=== PATIENT | male | born 2000 | race Caucasian/White ===

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

== ENCOUNTER 2021-03-31 10:55 | Inpatient (IN) | payer BC ==
[~2021-03-31] VITALS: Ht 185.4 cm; Wt 49.4 kg
--- NOTE | ~2021-03-31 | HEMODYNAMI ---
PATIENT:PARTH KAPLAN MEDICAL RECORD: [id number] : 01 LOCATION:D.MS [facility]19 ADMISSION DATE: 03/31/21 Generatedon:115:52 Patient name: PARTH KAPLAN Patient #: [id number] SSN: : 2000 Date of study: 04/02/2021 Page: Of Hemodynamic Procedure Report Patient Data Patient Demographics Procedure consent was obtained First Name: PARTH Gender: Male Last Name: EUSEBIO : 2000 Middle Initial: SHANEL Age: 21 year(s) Patient #: [id number] Race: Unknown Additional ID: [id number] Contact details Address: [address] [place] [address] State: [place] City: [facility] Zip code: [address] Past Medical History Allergies: No known allergies Admission Admission Data Admission Date: 03/31/2021 Admission Time: 12:08 Room #: D[facility]9 Height (in.): 71 BSA: 1.63 (m2) Height (cm.): 180.34 BMI: 15.2 (kg/m2) Weight (lbs.): 109 Weight (kg.): 49.44 Procedure Procedure Types Cath Procedure Peripheral Cath Diagnostic Procedure PICC PICC Line Placement Procedure Description Procedure Date Procedure Date: 04/02/2021 Procedure Start Time: 15:41 Procedure Staff Name Function Yuri Malhotra MD Performing Physician Mikaela Jones RT Kettle Chipper Hernán Bond RT Scrub Sheila Wellington RN Nurse Eugenia Gil RN Nurse Procedure Data Cath Procedure Fluoroscopy Diagnostic fluoroscopy Total fluoroscopy Time: 0.5 time: 0.5 min min Diagnostic fluoroscopy Total fluoroscopy dose: 1 dose: 1 mGy mGy Hemodynamics Rest BSA: 1.63 (m2) O2 Consumption: Estimated: 221.68 (ml/min) O2 Consumption indexed : Estimated:136 (ml/min/m) Pre Cath Intra NCS Post Cath Procedure Log Time Note 14:59:15 Patient Height : 71 inches 14:59:18 Patient Weight : 109 lbs 14:59:47 Use device set PICC 15:16:34 PowerPICC 5Fr double lumen catheter opened to sterile field. 15:16:35 SHIELD Sorbaview ([id number]) opened to sterile field. 15:16:36 Sterile Angiographic Pack opened to sterile field. 15:16:38 Bag Decanter (2002) opened to sterile field. 15:16:43 - 15:16:45 Time tracking: Regular hours (M-F 7:00 - 5:00) 15:27:47 Plan of Care:Hemodynamics will remain stable., Cardiac rhythm will remain stable., Comfort level will be maintained., Respiratory function will remain adequate., Patient/ family verbilizes understanding of procedure., Procedure tolerated without complication., Recovers from procedure without complications.. 15:27:55 Patient received from Med/Surg to IR Alert and oriented. Tansferred to table in Supine position. 15:27:59 Signed procedure consent form obtained from patient. 15:28:02 - 15:28:04 Pre-procedure instructions explained to patient. 15:28:05 Pre-op teaching completed and patient verbalized understanding. 15:28:07 Family unavailable. 15:28:15 Patient allergic to No known allergies 15:28:33 Right Arm area was prepped with chlora-prep and draped in sterile fashion 15:41:01 Physician arrived 15:41:01 --------ALL STOP TIME OUT------ 15:41:02 Final Timeout: patient, procedure, and site verified with staff and physician. All members of the team are in agreement. 15:41:18 Fire Safety Assessment: A--An alcohol-based skin anteseptic being used preoperatively. 15:41:23 Procedure started. 15:41:24 Full Disclosure recording started 15:41:29 Local anesthetic to right arm with Lidocaine 1% by Yuri Malhotra MD.INITIAL ACCESS ONLY 15:47:34 PICC line was trimmed to 43cm and advanced to the superior vena cava.Position verified under fluoroscopy. 15:49:24 Procedure ended.(Physican Out) 15:49:28 Fluoroscopy time 00.50 minutes. 15:49:31 Fluoroscopy dose: 1 mGy 15:49:31 Flurop Dose total: 1 15:50:15 Procedure and supply charges have been captured, reviewed, submitted an d are correct. 15:51:32 Report given to Med/Surg. Device Usage Item Name Manufacture Quantity Catalog Hospital Part Current Minimal Lot# / Number Charge Number Stock Stock Serial# Code [facility] 1 [id number] 5 5Fr double lumen catheter SHIELD Centurion 1 [id number] 5 Sorbaview ([id number]) Sterile Cardinal 1 [id number] 5 Angiographic Health Pack Bag Decanter Microtek 1 [id number] 5 () [employer] Signature Audit [place] Stage Time Signature Unsigned Intra-Procedure 04/02/2021 Mikaela Jones 3:52:12 PM RT(R) [facility] [address] [place] [address]
[2021-03-31] MEDS ORDERED: XIFAXAN550 MG PO (11:00)
--- NOTE | 2021-03-31 11:20 | NUR ---
PATIENT ARRIVED VIA STRETCHER VIA EMS- iV LEFT FOREARM IN PLACE AND PATIENT WITH NS AT O
[2021-03-31 11:22] LABS: BASOPHILS 0.7 % (0-2); EOSINOPHILS 0.4 % (0-7); HEMATOCRIT 43.7 % (42.0-54.0); HEMOGLOBIN 15.4 g/dL (13.5-17.5); MCH 29.1 pg (26.0-34.0); MCHC 35.2 g/dL (31.0-37.0); MCV 82.8 fL (80.0-100.0); MEAN PLATELET VOLUME 8.1 fL (7.4-10.4); MONOCYTES 10.2 % (2-11); NEUTROPHILS 68.7 % (40-80); PLATELET COUNT 240 10x3/uL (130-400); RBC 5.28 10x6/uL (4.20-6.10); RDW 13.2 % (11.5-14.5); WBC 9.5 10x3/uL (4.8-10.8)
[2021-03-31 11:24] LABS: CALC OSMOLALITY 278 mosm/kg (275-300); CALCIUM 9.5 mg/dL (8.5-10.1); CARBON DIOXIDE 27.5 mmol/L (21.0-32.0); CHLORIDE - SERUM 96 mmol/L (98-107); CREATININE - SERUM 1.2 mg/dL (0.6-1.3); GLUCOSE 114 mg/dL (74-106); SODIUM 138 mmol/L (136-145); UREA NITROGEN 19 mg/dL (7-18); eGFR NON AFRICAN AMERICAN 82 mL/min (90-120)
[2021-03-31 11:33] LABS: ALKALINE PHOSPHATASE 55 U/L (30-120); ALT (SGPT) 55 U/L (10-68); AMYLASE - SERUM 54 U/L (25-115); BILIRUBIN - TOTAL 1.71 mg/dL (0.2-1.3); LIPASE 102 U/L (73-393); PROTEIN - SERUM 8.5 g/dL (6.4-8.2); TROPONIN-I < 0.017 ng/mL (0.000-0.060)
[2021-03-31 12:21] VITALS: BP 138/87
[2021-03-31 14:02] VITALS: BP 113/71
--- NOTE | 2021-03-31 14:03 | NUR ---
arouses easily. NS bolus completed. Mother remains at BS. Denies pain at present. No vomiting at this time. Mother and patient reminded he is NPO due to further testing needed to be done.
[2021-03-31 14:55] VITALS: BP 132/75
--- NOTE | 2021-03-31 16:08 | NUR ---
PT GOING FOR CT
--- NOTE | 2021-03-31 17:44 | NUR ---
Report called to [facility] nurse. DI notified of patient being transferred to room 3497
--- NOTE | 2021-03-31 18:16 | NUR ---
TO UNIT FROM CT VIA STRETCHER. MOMS AT BEDSIDE. SOME NAUSEA NOTED. STATES IT IS FROM THE ENSURE HE DRANK. DENIES FURTHER NEEDS AT THIS TIME. WILL CONTINUE TO MONITOR.
[2021-03-31 20:00] VITALS: BP 136/75
[2021-04-01 01:05] VITALS: BP 136/75
[2021-04-01 06:06] LABS: BASOPHILS 0.8 % (0-2); EOSINOPHILS 1.6 % (0-7); LYMPHOCYTES 47.4 % (15-50); MCH 29.8 pg (26.0-34.0); MCHC 35.5 g/dL (31.0-37.0); MCV 83.8 fL (80.0-100.0); MEAN PLATELET VOLUME 8.3 fL (7.4-10.4); MONOCYTES 9.9 % (2-11); NEUTROPHILS 40.3 % (40-80); PLATELET COUNT 205 10x3/uL (130-400); RDW 12.7 % (11.5-14.5); WBC 9.3 10x3/uL (4.8-10.8)
[2021-04-01 06:24] LABS: HEMATOCRIT 34.3 % (42.0-54.0); HEMOGLOBIN 12.2 g/dL (13.5-17.5); RBC 4.09 10x6/uL (4.20-6.10)
--- NOTE | 2021-04-01 07:30 | NUR ---
IN BED SLEEPING. BED LOW POSITION, CALL LIGHT IN REACH. SISTER AT BEDSIDE. WILL CONTINUE TO MONITOR.
[2021-04-01 07:56] LABS: ALKALINE PHOSPHATASE 44 U/L (30-120); BILIRUBIN - TOTAL 1.46 mg/dL (0.2-1.3); CALC OSMOLALITY 278 mosm/kg (275-300); CALCIUM 8.4 mg/dL (8.5-10.1); CARBON DIOXIDE 29.6 mmol/L (21.0-32.0); CHLORIDE - SERUM 103 mmol/L (98-107); GLUCOSE 95 mg/dL (74-106); POTASSIUM - SERUM 3.4 mmol/L (3.5-5.1); SODIUM 139 mmol/L (136-145); UREA NITROGEN 15 mg/dL (7-18); eGFR NON AFRICAN AMERICAN > 90 mL/min (90-120)
[2021-04-01 08:02] LABS: ALBUMIN 3.6 g/dL (3.4-5.0); ALT (SGPT) 39 U/L (10-68); PROTEIN - SERUM 6.3 g/dL (6.4-8.2)
[2021-04-01 08:50] VITALS: BP 111/63
[2021-04-01 12:56] VITALS: BP 141/86
--- NOTE | 2021-04-01 15:11 | NUR ---
IN BED RESTING. IV INFUSING PER MAR. FAMILY AT BEDSIDE. DENIES NEEDS AT THIS TIME. WILL CONTINUE TO MONITOR.
[2021-04-01 16:38] VITALS: BP 119/68
[2021-04-02 06:32] LABS: HEMATOCRIT 33.2 % (42.0-54.0); HEMOGLOBIN 11.7 g/dL (13.5-17.5); MCH 29.7 pg (26.0-34.0); MCHC 35.1 g/dL (31.0-37.0); MCV 84.7 fL (80.0-100.0); MEAN PLATELET VOLUME 8.7 fL (7.4-10.4); PLATELET COUNT 173 10x3/uL (130-400); RBC 3.92 10x6/uL (4.20-6.10); RDW 12.4 % (11.5-14.5)
[2021-04-02 06:51] LABS: ALBUMIN 3.5 g/dL (3.4-5.0); ALKALINE PHOSPHATASE 37 U/L (30-120); ALT (SGPT) 37 U/L (10-68); BILIRUBIN - TOTAL 1.24 mg/dL (0.2-1.3); CALC OSMOLALITY 273 mosm/kg (275-300); CALCIUM 8.2 mg/dL (8.5-10.1); CARBON DIOXIDE 25.4 mmol/L (21.0-32.0); CHLORIDE - SERUM 105 mmol/L (98-107); CREATININE - SERUM 0.9 mg/dL (0.6-1.3); GLUCOSE 86 mg/dL (74-106); MAGNESIUM - SERUM 1.9 mg/dL (1.8-2.4); PHOSPHOROUS 3.1 mg/dL (2.5-4.9); POTASSIUM - SERUM 3.7 mmol/L (3.5-5.1); PRE-ALBUMIN 18.9 mg/dL (18.0-35.7); SODIUM 138 mmol/L (136-145); UREA NITROGEN 11 mg/dL (7-18); eGFR NON AFRICAN AMERICAN > 90 mL/min (90-120)
--- NOTE | 2021-04-02 07:15 | NUR ---
REC'D IN BED AWAKE AND ALERT. RESP EVEN AND UNLABORED WITH NO DISTRESS NOTED CAN EXPRESS NEEDS AND WANTS. NO C/O NOTED OR VOICED AT THIS TIME. ASSESSMENT COMPLETED. C/L IN REACH AT BEDSIDE.
[2021-04-02 09:23] VITALS: BP 110/70
[2021-04-02 12:45] LABS: EOSINOPHILS 7 % (0-7); LYMPHOCYTES 54 % (15-50); MONOCYTES 2 % (2-11); NEUTROPHILS 33 % (40-80); PLATELET ESTIMATE NORMAL
--- NOTE | 2021-04-02 13:37 | NUR ---
I have reviewed this patient and I concur with the Shift Assessment completed by the Licensed Practical Nurse today this shift.
[2021-04-02 14:33] VITALS: Ht 185.4 cm; Wt 49.4 kg
[2021-04-02 16:46] VITALS: BP 127/78
--- NOTE | 2021-04-02 17:22 | NUR ---
CALLED AND SPOKE WITH TIA MATHIS ABOUT PT CONTINUING TO VOMIT AT THIS TIME. REC'D NEW ORDERS FOR PHENEGRAN 12.5 MG X 1 DOSE IM, DROP NG TUBE TO LIWS, AND LABS OF CEA AND CA19-9. ORDERS WERE CARRIED OUT. WILL CONTINUE TO OBSERVE FOR NEEDS. C/L IN REACH AT BEDSIDE.
--- NOTE | 2021-04-02 18:34 | NUR ---
NG TUBE DROPPED AT THIS TIME TO LEFT NARE WITH 16 F. PT TOLERATED WELL. NO C/O NOTED OR VOICED. C/L AND FAMILY AT BEDSIDE.
[2021-04-02 18:48] LABS: BILIRUBIN NEGATIVE (NEGATIVE); KETONE 3+ mg/dL (< 1+); NITRITE NEGATIVE (NEGATIVE); UROBILINOGEN NORMAL mg/dL (< 2)
[2021-04-02 18:50] LABS: UDS - AMPHET NEGATIVE QUAL (NEGATIVE); UDS - BARB NEGATIVE QUAL (NEGATIVE); UDS - BENZO NEGATIVE QUAL (NEGATIVE); UDS - COCAINE NEGATIVE QUAL (NEGATIVE); UDS - OPIATE NEGATIVE QUAL (NEGATIVE); UDS - PCP NEGATIVE QUAL (NEGATIVE); UDS - THC POSITIVE QUAL (NEGATIVE)
--- NOTE | 2021-04-02 19:30 | NUR ---
RECIEVED BEDSIDE REPORT. RESTING HIGH KIMBALL'S IN BED NG TUBE TO LEFT NARE PATENT AND CONNECTED TO LOW INTERMITTENT SUCTION. CLEAR DRAINAGE NOTED. PIV TO LEFT WRIST PATENT WITH DRESSING C/D/I, INFUSING. PICC LINE TO RIGHT UPPER ARM DOUBLE LUMEN DRESSING INTACT SWAB CAPS IN PLACE. NO NEEDS VOICED AT THIS TIME. CALL LIGHT IN REACH BED LOCKED IN LOW POSITION.
[2021-04-02 20:00] VITALS: BP 122/64
[2021-04-03 05:47] LABS: EOSINOPHILS 3.4 % (0-7); HEMATOCRIT 35.7 % (42.0-54.0); HEMOGLOBIN 12.2 g/dL (13.5-17.5); LYMPHOCYTES 37.3 % (15-50); MCH 28.9 pg (26.0-34.0); MCHC 34.2 g/dL (31.0-37.0); MCV 84.5 fL (80.0-100.0); MONOCYTES 9.3 % (2-11); RBC 4.22 10x6/uL (4.20-6.10); RDW 12.5 % (11.5-14.5); WBC 8.7 10x3/uL (4.8-10.8)
[2021-04-03 06:14] LABS: ALBUMIN 3.7 g/dL (3.4-5.0); ALKALINE PHOSPHATASE 46 U/L (30-120); ALT (SGPT) 33 U/L (10-68); CALC OSMOLALITY 271 mosm/kg (275-300); CALCIUM 8.5 mg/dL (8.5-10.1); CARBON DIOXIDE 25.6 mmol/L (21.0-32.0); CHLORIDE - SERUM 103 mmol/L (98-107); CREATININE - SERUM 0.8 mg/dL (0.6-1.3); GLUCOSE 89 mg/dL (74-106); POTASSIUM - SERUM 3.6 mmol/L (3.5-5.1); PROTEIN - SERUM 6.6 g/dL (6.4-8.2); SODIUM 137 mmol/L (136-145); UREA NITROGEN 11 mg/dL (7-18); eGFR NON AFRICAN AMERICAN > 90 mL/min (90-120)
[2021-04-03 06:23] LABS: PLATELET COUNT 211 10x3/uL (130-400)
--- NOTE | 2021-04-03 08:08 | NUR ---
PT. RESTING IN BED, AWAKE AND ALERT. MOTHER IN ROOM. DENIES ANY NEEDS OR PAIN. SAYS NAUSEA IS BETTER WITH ZOFRAN DRIP INFUSING. NGTUBE TO Yina HERZOG, PATENT AND SUCTIONING CLEAR DRAINAGE. DENIES PASSING GAS AT THIS TIME. BOWEL SOUNDS+ ALL FOUR QUADRANTS. CL WITHIN REACH, SRUPX2.
[2021-04-03 09:00] VITALS: BP 107/67
--- NOTE | 2021-04-03 09:50 | NUR ---
PT WALKING IN HALLWAY WITH MOTHER. NO DIFFICULTY. STEADY GAIT
[2021-04-03 13:00] VITALS: BP 121/87
--- NOTE | 2021-04-03 13:06 | NUR ---
I have reviewed this patient and I concur with the Shift Assessment completed by the Licensed Practical Nurse today this shift.
[2021-04-03 13:12] LABS: HEPATITIS C ANTIBODY <0.1 S/CO RAT (0.0-0.9)
[2021-04-03 16:00] VITALS: BP 124/89
[2021-04-03 20:00] VITALS: BP 112/65
[2021-04-04 05:58] LABS: BASOPHILS 0.4 % (0-2); EOSINOPHILS 0.9 % (0-7); HEMATOCRIT 33.1 % (42.0-54.0); HEMOGLOBIN 11.7 g/dL (13.5-17.5); LYMPHOCYTES 13.8 % (15-50); MCH 30.2 pg (26.0-34.0); MCHC 35.5 g/dL (31.0-37.0); MCV 85.1 fL (80.0-100.0); MEAN PLATELET VOLUME 9.1 fL (7.4-10.4); MONOCYTES 10.8 % (2-11); NEUTROPHILS 74.1 % (40-80); PLATELET COUNT 196 10x3/uL (130-400); RBC 3.89 10x6/uL (4.20-6.10); RDW 12.4 % (11.5-14.5)
[2021-04-04 06:18] LABS: ALBUMIN 3.3 g/dL (3.4-5.0); ALKALINE PHOSPHATASE 45 U/L (30-120); ALT (SGPT) 31 U/L (10-68); BILIRUBIN - TOTAL 1.09 mg/dL (0.2-1.3); CALCIUM 8.3 mg/dL (8.5-10.1); CARBON DIOXIDE 25.6 mmol/L (21.0-32.0); CHLORIDE - SERUM 100 mmol/L (98-107); CREATININE - SERUM 0.8 mg/dL (0.6-1.3); GLUCOSE 99 mg/dL (74-106); PROTEIN - SERUM 6.1 g/dL (6.4-8.2); SODIUM 131 mmol/L (136-145); eGFR NON AFRICAN AMERICAN > 90 mL/min (90-120)
[2021-04-04 06:19] LABS: CALC OSMOLALITY 260 mosm/kg (275-300); POTASSIUM - SERUM 5.1 mmol/L (3.5-5.1); UREA NITROGEN 7 mg/dL (7-18)
[2021-04-04 07:41] VITALS: BP 124/69
--- NOTE | 2021-04-04 14:12 | NUR ---
I have reviewed this patient and I concur with the Shift Assessment completed by the Licensed Practical Nurse today this shift.
[2021-04-04 15:12] LABS: CEA 1.6 ng/mL (0.0-4.7)
[2021-04-04 16:54] VITALS: BP 107/63
[2021-04-04 18:53] LABS: ERYTHROCYTE SEDIMENTATION RATE 4 mm/hr (0-15)
[2021-04-05] VITALS: BP 94/46
[2021-04-05 04:00] VITALS: BP 109/8
[2021-04-05 06:25] LABS: ALBUMIN 3.2 g/dL (3.4-5.0); ALKALINE PHOSPHATASE 37 U/L (30-120); ALT (SGPT) 26 U/L (10-68); BILIRUBIN - TOTAL 0.85 mg/dL (0.2-1.3); CALC OSMOLALITY 276 mosm/kg (275-300); CALCIUM 8.2 mg/dL (8.5-10.1); CHLORIDE - SERUM 104 mmol/L (98-107); CREATININE - SERUM 0.9 mg/dL (0.6-1.3); GLUCOSE 102 mg/dL (74-106); POTASSIUM - SERUM 3.7 mmol/L (3.5-5.1); PROTEIN - SERUM 6.1 g/dL (6.4-8.2); SODIUM 139 mmol/L (136-145); UREA NITROGEN 9 mg/dL (7-18); eGFR NON AFRICAN AMERICAN > 90 mL/min (90-120)
[2021-04-05 06:28] LABS: BASOPHILS 0.4 % (0-2); EOSINOPHILS 2.7 % (0-7); HEMATOCRIT 33.1 % (42.0-54.0); HEMOGLOBIN 11.4 g/dL (13.5-17.5); LYMPHOCYTES 24.2 % (15-50); MCH 29.5 pg (26.0-34.0); MCHC 34.4 g/dL (31.0-37.0); MCV 85.7 fL (80.0-100.0); MEAN PLATELET VOLUME 8.7 fL (7.4-10.4); MONOCYTES 12.6 % (2-11); NEUTROPHILS 60.1 % (40-80); PLATELET COUNT 166 10x3/uL (130-400); RBC 3.86 10x6/uL (4.20-6.10); RDW 12.3 % (11.5-14.5); WBC 7.6 10x3/uL (4.8-10.8)
--- NOTE | 2021-04-05 07:25 | NUR ---
PT IS RESTING IN BED WITH EYES CLOSED. RESPIRATIONS ARE EVEN AND UNLABORED. PT IS EASILY AROUSED WITH VERBAL STIMULATION AND IS AAO X 4 UPON AROUSAL. RIGHT UPPER ARM PICC NOTED AND INFUSING PER ORDER WITHOUT COMPROMISE. DRESSING IN PLACE AND CDI. SWAB CAPS IN APPROPRIATE PLACES FOR INFUSION LINES. INCENTIVE SPIROMETER WITHIN REACH AND ENCOURAGED. PT VERBALIZES UDNERSTANDING. PT WITH FAMILY MEMBER AT BEDSIDE AND STATES HX OF ABDOMINAL/BOWEL MALFORMATION AT WITH QUESTIONS PERTAINING TO CONNECTION TO CURRENT DX. WILL RELAY INFORMATION TO PT PHYSICIAN. PT DENIES PRESENCE OF N/V AT THIS TIME. PT STATES THAT HE HAS BEEN TOLERATING CL AND REPORTS LAST EPISODE OF EMESIS "4 DAYS AGO". PT REPORTS BM THIS AM DESCRIBED SMALL AND HARD. PT DENIES PRESENCE OF DYSPNEA/SOB AT THIS TIME. BED IS IN THE LOWEST POSITION. CALL LIGHT AND BEDSIDE TABLE ARE WITHIN REACH. SIDE RAILS X 2. PT AND PT FAMILY DENY FURTHER NEEDS. WILL CONT TO MONITOR.
[2021-04-05 09:11] VITALS: BP 115/64
[2021-04-05 11:32] VITALS: BP 125/63
--- NOTE | 2021-04-05 13:27 | NUR ---
Nutrition follow-up: Diet order: Full liquids; pt tolerating with no N/V for several days ProcalAmine PPN continues @ 50 ml/hr Labs reviewed Wt: 109# Recommendations: Increase ProcalAmine PPN to 100 ml/hr to increase kcal, protein intake RDN will order Ensure with meals Follow-up on pts progress toward nutrition goals in 3-5 days.
[2021-04-05 17:39] VITALS: BP 120/75
--- NOTE | 2021-04-05 19:30 | NUR ---
RECEIVED BEDSIDE REPORT. PT LAYING IN BED A&O X4. PICC LINE TO RIGHT UPPER ARM, PATENT AND INFUSING, NO REDNESS OR SWELLING. PT ABLE TO AMBULATE AD ELISE. EDUCATED PT ON CL AND NEEDS, VERBALIZED UNDERSTANDING. BED LOW, CL IN REACH.
[2021-04-06 05:13] LABS: BASOPHILS 0.6 % (0-2); EOSINOPHILS 3.4 % (0-7); HEMATOCRIT 29.2 % (42.0-54.0); HEMOGLOBIN 10.2 g/dL (13.5-17.5); LYMPHOCYTES 28.4 % (15-50); MCH 29.7 pg (26.0-34.0); MCHC 34.9 g/dL (31.0-37.0); MCV 85.1 fL (80.0-100.0); MEAN PLATELET VOLUME 8.8 fL (7.4-10.4); MONOCYTES 13.3 % (2-11); NEUTROPHILS 54.3 % (40-80); PLATELET COUNT 171 10x3/uL (130-400); RBC 3.43 10x6/uL (4.20-6.10); RDW 12.4 % (11.5-14.5); WBC 6.7 10x3/uL (4.8-10.8)
[2021-04-06 06:09] LABS: ALKALINE PHOSPHATASE 39 U/L (30-120); ALT (SGPT) 22 U/L (10-68); BILIRUBIN - TOTAL 0.44 mg/dL (0.2-1.3); CALC OSMOLALITY 276 mosm/kg (275-300); CARBON DIOXIDE 25.2 mmol/L (21.0-32.0); CHLORIDE - SERUM 107 mmol/L (98-107); CREATININE - SERUM 0.8 mg/dL (0.6-1.3); GLUCOSE 94 mg/dL (74-106); POTASSIUM - SERUM 4.1 mmol/L (3.5-5.1); PROTEIN - SERUM 5.9 g/dL (6.4-8.2); SODIUM 140 mmol/L (136-145); UREA NITROGEN 7 mg/dL (7-18); eGFR NON AFRICAN AMERICAN > 90 mL/min (90-120)
--- NOTE | 2021-04-06 07:43 | NUR ---
PT RESTING QUIETLY IN BED. RESP EVEN AND UNLABORED. PICC LINE INTACT TO RIGHT UPPER ARM WITH PROCALAMINE @ 50 ML/HR, ZOFRAN 4.7 ML/HR, AND NS @ 100ML/HR ALL INFUSING VIA PUMP. SITE WITHOUT REDNESS OR EDEMA. PT DENIES ANY N/V AT THIS TIME. DENIES FURTHER NEEDS AT THIS TIME. CL WITHIN REACH. ENCOURAGED TO CALL WITH NEEDS. CONTINUE POC
[2021-04-06 09:04] VITALS: BP 108/60
[2021-04-06 12:45] VITALS: BP 119/78
[2021-04-06 20:00] VITALS: BP 98/70
[2021-04-07 04:00] VITALS: BP 107/60
--- NOTE | 2021-04-07 07:47 | NUR ---
SITTING UP IN BED WITH EYES OPEN, ALERT AND ORIENTED. PICC LOCATED TO RIGHT ARM, PROCAL RUNNING @ 50, NS RUNNING @ 100. NO CURRENT S/S OF DISTRESS, DENIES NEEDS AT THIS TIME, WILL CONT TO MONITOR.
[2021-04-07 08:58] VITALS: BP 115/59
[2021-04-07 09:16] LABS: BASOPHILS 1.2 % (0-2); EOSINOPHILS 6.3 % (0-7); HEMATOCRIT 33.8 % (42.0-54.0); HEMOGLOBIN 11.7 g/dL (13.5-17.5); LYMPHOCYTES 33.3 % (15-50); MCH 29.4 pg (26.0-34.0); MCHC 34.7 g/dL (31.0-37.0); MCV 84.7 fL (80.0-100.0); MEAN PLATELET VOLUME 8.4 fL (7.4-10.4); MONOCYTES 12.9 % (2-11); NEUTROPHILS 46.3 % (40-80); RDW 12.5 % (11.5-14.5)
[2021-04-07 09:25] LABS: PLATELET COUNT 251 10x3/uL (130-400); WBC 4.7 10x3/uL (4.8-10.8)
[2021-04-07 09:28] LABS: ALBUMIN 3.5 g/dL (3.4-5.0); ALKALINE PHOSPHATASE 39 U/L (30-120); ALT (SGPT) 27 U/L (10-68); CALC OSMOLALITY 277 mosm/kg (275-300); CALCIUM 8.9 mg/dL (8.5-10.1); CHLORIDE - SERUM 105 mmol/L (98-107); CREATININE - SERUM 0.8 mg/dL (0.6-1.3); GLUCOSE 84 mg/dL (74-106); MAGNESIUM - SERUM 2.2 mg/dL (1.8-2.4); POTASSIUM - SERUM 4.7 mmol/L (3.5-5.1); PROTEIN - SERUM 6.7 g/dL (6.4-8.2); SODIUM 141 mmol/L (136-145); UREA NITROGEN 6 mg/dL (7-18); eGFR NON AFRICAN AMERICAN > 90 mL/min (90-120)
[2021-04-07 13:38] VITALS: BP 104/68; BP 118/79
[2021-04-07 17:47] VITALS: BP 120/70
[2021-04-07 20:00] VITALS: BP 125/75; BP 139/65
[2021-04-08 04:00] VITALS: BP 120/81
[2021-04-08 06:52] LABS: BASOPHILS 1.1 % (0-2); EOSINOPHILS 4.9 % (0-7); HEMATOCRIT 34.1 % (42.0-54.0); HEMOGLOBIN 11.7 g/dL (13.5-17.5); MCH 29.1 pg (26.0-34.0); MCHC 34.5 g/dL (31.0-37.0); MCV 84.5 fL (80.0-100.0); MEAN PLATELET VOLUME 8.1 fL (7.4-10.4); MONOCYTES 11.4 % (2-11); NEUTROPHILS 39.6 % (40-80); PLATELET COUNT 294 10x3/uL (130-400); RBC 4.03 10x6/uL (4.20-6.10); RDW 12.6 % (11.5-14.5); WBC 5.2 10x3/uL (4.8-10.8)
[2021-04-08 07:13] VITALS: BP 127/72
[2021-04-08 07:19] LABS: ALBUMIN 3.6 g/dL (3.4-5.0); ALKALINE PHOSPHATASE 46 U/L (30-120); ALT (SGPT) 29 U/L (10-68); BILIRUBIN - TOTAL 0.69 mg/dL (0.2-1.3); CALCIUM 8.9 mg/dL (8.5-10.1); CARBON DIOXIDE 27.8 mmol/L (21.0-32.0); CHLORIDE - SERUM 103 mmol/L (98-107); CREATININE - SERUM 0.8 mg/dL (0.6-1.3); GLUCOSE 95 mg/dL (74-106); POTASSIUM - SERUM 4.2 mmol/L (3.5-5.1); PROTEIN - SERUM 6.7 g/dL (6.4-8.2); SODIUM 139 mmol/L (136-145); eGFR NON AFRICAN AMERICAN > 90 mL/min (90-120)
[2021-04-08 07:20] LABS: CALC OSMOLALITY 276 mosm/kg (275-300); UREA NITROGEN 9 mg/dL (7-18)
[2021-04-08 12:29] VITALS: BP 106/68
[2021-04-08 12:36] LABS: MAGNESIUM - SERUM 2.3 mg/dL (1.8-2.4)
[2021-04-08 16:15] VITALS: BP 107/67
[2021-04-09 05:39] LABS: BASOPHILS 1.2 % (0-2); EOSINOPHILS 4.1 % (0-7); HEMATOCRIT 37.4 % (42.0-54.0); HEMOGLOBIN 12.8 g/dL (13.5-17.5); LYMPHOCYTES 40.6 % (15-50); MCH 28.8 pg (26.0-34.0); MCHC 34.1 g/dL (31.0-37.0); MCV 84.3 fL (80.0-100.0); NEUTROPHILS 42.1 % (40-80); PLATELET COUNT 340 10x3/uL (130-400); RBC 4.44 10x6/uL (4.20-6.10); RDW 12.3 % (11.5-14.5)
[2021-04-09 06:08] LABS: ALBUMIN 3.8 g/dL (3.4-5.0); ALKALINE PHOSPHATASE 51 U/L (30-120); ALT (SGPT) 37 U/L (10-68); BILIRUBIN - TOTAL 0.39 mg/dL (0.2-1.3); CALC OSMOLALITY 278 mosm/kg (275-300); CALCIUM 8.8 mg/dL (8.5-10.1); CARBON DIOXIDE 30.1 mmol/L (21.0-32.0); CHLORIDE - SERUM 103 mmol/L (98-107); CREATININE - SERUM 0.9 mg/dL (0.6-1.3); GLUCOSE 88 mg/dL (74-106); MAGNESIUM - SERUM 2.3 mg/dL (1.8-2.4); PHOSPHOROUS 5.4 mg/dL (2.5-4.9); POTASSIUM - SERUM 4.6 mmol/L (3.5-5.1); PROTEIN - SERUM 7.1 g/dL (6.4-8.2); SODIUM 140 mmol/L (136-145); UREA NITROGEN 16 mg/dL (7-18); eGFR NON AFRICAN AMERICAN > 90 mL/min (90-120)
[2021-04-09 06:37] LABS: WBC 7.2 10x3/uL (4.8-10.8)
--- NOTE | 2021-04-09 06:56 | NUR ---
SLEEPING ON LEFT SIDE. PATIENT IS WITHOUT DISTRES.CALL LIGHT IN REACH
[2021-04-09 10:27] VITALS: BP 125/59
--- NOTE | 2021-04-09 16:18 | MORECARE ---
CASE MANAGEMENT DISCHARGE SUMMARY PATIENT: PARTH KAPLAN UNIT: [id number] ADM DATE: 04/04/21 AGE: 21 : 01 SEX: M ROOM/BED: D.2219 AUTHOR: COURTNEY,DOC PHYSICIAN: REFERRING PHYSICIAN: MARLO LYONS MD DATE OF SERVICE: 04/09/21 Case Management Discharge Planning Summary COMMENTS ENTERED DATE: 04/09/21 16:13 CT COMMENT TYPE: Discharge Planning REVIEWER: Sera Loja CM met with patient to complete initial dc planning assessment. CM educated patient on the CM role and verbal consent given by patient to complete assessment. Patient lives at home with his parents where he is independent with his care. At discharge patient plans to return home and feels this is a safe discharge. CM discussed availability of home health, rehab services, and medical equipment. He is a patient of Dr Ortega and uses [facility]. His mom will be his route cdl driver home. There was discussion about keeping the PICC line in place for at least a week to make sure he does not need it. Lita and Dr Smith spoke about it on 04/08/21 per Lita. The nurse will get with MD/ BAGGAGE PORTER to see if he was to go home with it. IF he does nurse will teach flushing and care. He works a job so did not want home health. All of this was discussed with patient and mother. Patient denied known discharge needs at this time. CM will continue to follow and will assist as needed with dc plans/needs. DCP REVIEW SUMMARY ANTICIPATED D/C DATE: EXPECTED LOS : CASE STATUS: DCP Initiated INITIAL REVIEW: 03/31/2021 INITIAL REVIEWER: Sera Loja FINAL DISCHARGE DISPOSITION: : FINAL REVIEWER: FINAL REVIEW DATE: DCP [employer] Questions & Answers QUESTION: ANSWER : PATIENT: PARTH KAPLAN ENCOUNTER: [id number] MEDICAL RECORD#: [id number] ADMISSION DATE: 04/04/2021 DISCHARGE DATE: ATTENDING MD: VIOLETA: AGE: 21 MARITAL STATUS: S DC PLAN ID: [id number] FACILITY: [facility] PRINTED ON: 04/09/21 16:17 CT All edits/amendments must be made on the electronic document DICTATION DATE: 04/09/21 1617 DRY FOLDER CLOTH: ASHWINI 04/09/21 1617 RPT#: [id number] DC DATE: STATUS: ADM IN [facility] [address] [place] [address] END OF REPORT
--- NOTE | 2021-04-09 16:42 | NUR ---
PICC LINE REMOVED INTACT AT 43 CM. PRESSURE HELD X 5 MIN AND BIOPATCH/OPSITE APPLIED. INFORMATION GIVEN TO PT AND MOM.
--- NOTE | 2021-04-09 16:46 | NUR ---
patient to dc home, went over follow up appointments as well as instructions, all questions answered, picc line removed by nurse betting agency manager melida campbell.
== END 2021-04-09 17:19 | disposition home or self-care (01) | DRG 393 ==
LOC: D.ER 10:55 → D.MS 12:08 → OBSVTIME 12:08 → D.EDHOLD 12:08 → D.MS 17:13
PROVIDERS: Emergency Medicine; Family Medicine; Radiology Diagnostic Radiology; Surgery; ADMIT Family Medicine; ATTEND Family Medicine
PROC: B548ZZA Ultrasonography of Superior Vena Cava, Guidance (ICD-10-PCS; 2021-04-02)
PROC: 02HV33Z Insertion of Infusion Device into Superior Vena Cava, Percutaneous Approach (ICD-10-PCS; principal; 2021-04-02 15:27)
DX: K55.1 Chronic vascular disorders of intestine (principal); E43 Unspecified severe protein-calorie malnutrition; Z68.1 Body mass index [BMI] 19.9 or less, adult; K82.8 Other specified diseases of gallbladder; E16.2 Hypoglycemia, unspecified; F12.90 Cannabis use, unspecified, uncomplicated